=== PATIENT | female | born 1950 | race Caucasian/White ===

== ENCOUNTER 2020-01-09 11:15 | Inpatient (IN) ==
[2020-01-09] MEDS ORDERED: *HR* OxyCODONE Immed Rel 5 MG TABLET PO PRN (16:31)
[2020-01-09] MEDS ORDERED: Ondansetron ODT 4 MG TAB.RAPDIS PO PRN (16:31)
[2020-01-09] MEDS: Latanoprost 2.5 ML BOTTLE BOTH EYES SCH (20:45)
[2020-01-10] MEDS: Acetaminophen 325 MG TABLET PO PRN ×2 (03:42→15:38)
[2020-01-10] MEDS: *HR* Enoxaparin 40 MG/0.4 ML SYRINGE SQ SCH (05:04)
[2020-01-10 05:48] LABS: Basophils % 0.5 %; Eosinophils # 0.2 K/mcL (0.0-0.6); Eosinophils % 2.8 %; Hematocrit 30.7 % (35.3-44.9); Hemoglobin 10.2 g/dL (11.5-15.4); Immature Granulocytes % 0.3 % (0-4); Lymphocytes # 1.7 K/mcL (0.6-4.6); Lymphocytes % 21.7 %; Mean Corpuscular HGB Conc 33.2 g/dL (31.6-35.5); Mean Corpuscular Hemoglobin 30.3 pg (28.0-33.3); Mean Corpuscular Volume 91.1 fL (83.0-100.0); Mean Platelet Volume 10.2 fL (9.4-12.4); Monocytes # 0.7 K/mcL (0.0-1.3); Monocytes % 9.4 %; Neutrophils # 5.1 K/mcL (1.6-8.9); Platelet Count 283 K/mcL (140-400); Red Blood Count 3.37 M/mcL (3.82-4.97); Red Cell Distribution Width 13.7 % (11.5-14.5); Segmented Neutrophils % 65.3 %; White Blood Count 7.8 K/mcL (4.3-11.1)
[2020-01-10 06:17] LABS: BUN/Creatinine Ratio 16 (6-26); Blood Urea Nitrogen 10 mg/dL (8-23); Calcium 8.7 mg/dL (8.6-10.3); Carbon Dioxide 28 mEq/L (23-29); Chloride 104 mEq/L (98-107); Glucose 120 mg/dL (70-105); Osmolality,Calculated 290 (280-300); Potassium 3.7 mEq/L (3.5-5.1); Sodium 140 mEq/L (136-145); eGFR For African Americans > 60 (> 60); eGFR For Non-African Americans > 60 (> 60)
[2020-01-10] MEDS: Cholecalciferol (D-3) 1,000 UNIT (25MCG) TABLET PO SCH (10:39)
[2020-01-10] MEDS: Aspirin Enteric Coated 81 MG Tablet PO SCH (10:39)
[2020-01-10] MEDS: Multivit/Ca/Min/Fe/FA 1 TAB TABLET PO SCH (10:40)
[2020-01-10] MEDS: Ibuprofen 400 MG TABLET PO PRN ×2 (10:46→22:08)
[2020-01-10] MEDS: Latanoprost 2.5 ML BOTTLE BOTH EYES SCH (20:48)
[2020-01-11] MEDS: *HR* Enoxaparin 40 MG/0.4 ML SYRINGE SQ SCH (05:46)
[2020-01-11] MEDS: Acetaminophen 325 MG TABLET PO PRN (05:51)
[2020-01-11] MEDS: Multivit/Ca/Min/Fe/FA 1 TAB TABLET PO SCH (09:40)
[2020-01-11] MEDS: Aspirin Enteric Coated 81 MG Tablet PO SCH (09:41)
[2020-01-11] MEDS: Cholecalciferol (D-3) 1,000 UNIT (25MCG) TABLET PO SCH (09:41)
[2020-01-11] MEDS: Ibuprofen 400 MG TABLET PO PRN ×2 (09:41→20:47)
[2020-01-11] MEDS: Latanoprost 2.5 ML BOTTLE BOTH EYES SCH (20:48)
[2020-01-12] MEDS: Acetaminophen 325 MG TABLET PO PRN ×2 (02:49→18:14)
[2020-01-12] MEDS: *HR* Enoxaparin 40 MG/0.4 ML SYRINGE SQ SCH (05:57)
[2020-01-12] MEDS: Multivit/Ca/Min/Fe/FA 1 TAB TABLET PO SCH (08:37)
[2020-01-12] MEDS: Cholecalciferol (D-3) 1,000 UNIT (25MCG) TABLET PO SCH (08:38)
[2020-01-12] MEDS: Aspirin Enteric Coated 81 MG Tablet PO SCH (08:38)
[2020-01-12] MEDS: Latanoprost 2.5 ML BOTTLE BOTH EYES SCH (20:31)
[2020-01-12] MEDS: Ibuprofen 400 MG TABLET PO PRN (20:32)
[2020-01-13] MEDS: Acetaminophen 325 MG TABLET PO PRN ×2 (05:40→17:07)
[2020-01-13] MEDS: *HR* Enoxaparin 40 MG/0.4 ML SYRINGE SQ SCH (05:41)
[2020-01-13] MEDS: Cholecalciferol (D-3) 1,000 UNIT (25MCG) TABLET PO SCH (07:56)
[2020-01-13] MEDS: Multivit/Ca/Min/Fe/FA 1 TAB TABLET PO SCH (07:57)
[2020-01-13] MEDS: Aspirin Enteric Coated 81 MG Tablet PO SCH (07:57)
[2020-01-13] MEDS: Ibuprofen 400 MG TABLET PO PRN ×2 (15:36→21:38)
[2020-01-13] MEDS: Latanoprost 2.5 ML BOTTLE BOTH EYES SCH (21:38)
[2020-01-14] MEDS: *HR* Enoxaparin 40 MG/0.4 ML SYRINGE SQ SCH (06:09)
[2020-01-14] MEDS: Acetaminophen 325 MG TABLET PO PRN ×2 (06:11→15:12)
[2020-01-14] MEDS: Aspirin Enteric Coated 81 MG Tablet PO SCH (08:05)
[2020-01-14] MEDS: Multivit/Ca/Min/Fe/FA 1 TAB TABLET PO SCH (08:05)
[2020-01-14] MEDS: Cholecalciferol (D-3) 1,000 UNIT (25MCG) TABLET PO SCH (08:05)
[2020-01-14] MEDS: Ibuprofen 400 MG TABLET PO PRN (20:19)
[2020-01-14] MEDS: Latanoprost 2.5 ML BOTTLE BOTH EYES SCH (20:20)
[2020-01-15] MEDS: Acetaminophen 325 MG TABLET PO PRN ×2 (06:05→16:06)
[2020-01-15] MEDS: *HR* Enoxaparin 40 MG/0.4 ML SYRINGE SQ SCH (06:05)
[2020-01-15] MEDS: Multivit/Ca/Min/Fe/FA 1 TAB TABLET PO SCH (08:11)
[2020-01-15] MEDS: Aspirin Enteric Coated 81 MG Tablet PO SCH (08:11)
[2020-01-15] MEDS: Ibuprofen 400 MG TABLET PO PRN ×2 (08:11→21:29)
[2020-01-15] MEDS: Cholecalciferol (D-3) 1,000 UNIT (25MCG) TABLET PO SCH (08:11)
[2020-01-15] MEDS: Latanoprost 2.5 ML BOTTLE BOTH EYES SCH (21:30)
[2020-01-16] MEDS: *HR* Enoxaparin 40 MG/0.4 ML SYRINGE SQ SCH (06:21)
[2020-01-16] MEDS: Ibuprofen 400 MG TABLET PO PRN ×2 (08:30→21:18)
[2020-01-16] MEDS: Aspirin Enteric Coated 81 MG Tablet PO SCH (08:31)
[2020-01-16] MEDS: Cholecalciferol (D-3) 1,000 UNIT (25MCG) TABLET PO SCH (08:31)
[2020-01-16] MEDS: Multivit/Ca/Min/Fe/FA 1 TAB TABLET PO SCH (08:31)
[2020-01-16] MEDS: Acetaminophen 325 MG TABLET PO PRN (13:29)
[2020-01-16] MEDS: Latanoprost 2.5 ML BOTTLE BOTH EYES SCH (21:19)
[2020-01-17] MEDS: Ibuprofen 400 MG TABLET PO PRN ×2 (04:39→21:30)
[2020-01-17] MEDS: *HR* Enoxaparin 40 MG/0.4 ML SYRINGE SQ SCH (06:49)
[2020-01-17] MEDS: Acetaminophen 325 MG TABLET PO PRN ×2 (06:54→16:42)
[2020-01-17] MEDS: Cholecalciferol (D-3) 1,000 UNIT (25MCG) TABLET PO SCH (08:54)
[2020-01-17] MEDS: Aspirin Enteric Coated 81 MG Tablet PO SCH (08:54)
[2020-01-17] MEDS: Multivit/Ca/Min/Fe/FA 1 TAB TABLET PO SCH (08:54)
[2020-01-17] MEDS: Latanoprost 2.5 ML BOTTLE BOTH EYES SCH (19:59)
[2020-01-18] MEDS: *HR* Enoxaparin 40 MG/0.4 ML SYRINGE SQ SCH (05:54)
[2020-01-18 06:34] VITALS: BP 125/71
[2020-01-18] MEDS: Cholecalciferol (D-3) 1,000 UNIT (25MCG) TABLET PO SCH (08:03)
[2020-01-18] MEDS: Aspirin Enteric Coated 81 MG Tablet PO SCH (08:03)
[2020-01-18] MEDS: Multivit/Ca/Min/Fe/FA 1 TAB TABLET PO SCH (08:03)
[2020-01-18] MEDS: Acetaminophen 325 MG TABLET PO PRN (08:10)
== END 2020-01-18 12:04 | disposition home or self-care (01) | DRG 560 ==
LOC: INPPIK 16:25
PROVIDERS: ADMIT Family Medicine; ATTEND Family Medicine